=== PATIENT | female | born 1985 | race Two or more races ===

== ENCOUNTER 2024-01-21 09:50 | Day surgery (SDC) | payer BC, OTHER ==
[~2024-01-21 09:50] MED LIST: Sodium Chloride 0.9% 10 ML Syringe FLUSH PRN; Sodium Chloride 0.9% 2.5 ML Syringe FLUSH PRN; Sodium Chloride 0.9% 20 ML SDV IV PRN
[2024-01-21] MEDS ORDERED: propofoL 50 ML ONE (10:59)
[2024-01-21] MEDS: Lactated Ringers 1,000 ML IV SCH (11:00)
[2024-01-21] MEDS ORDERED: dexmedeTOMIDine HCl 200 MCG/2 ML SDV ONE (11:54)
[2024-01-21] MEDS ORDERED: Water For Injection, Sterile 20 ML ONE (11:54)
== END 2024-01-21 12:45 | disposition home or self-care (01) ==
LOC: MW.SDS 09:50
PROVIDERS: ATTEND Surgery
DX: R19.4 Change in bowel habit (principal); R63.4 Abnormal weight loss; N63.20 Unspecified lump in the left breast, unspecified quadrant; Z68.26 Body mass index [BMI] 26.0-26.9, adult; Z91.040 Latex allergy status; Z87.891 Personal history of nicotine dependence
CPT/HCPCS: 43239; 45380; 81025; J2704; J7120; J3490